=== PATIENT | female | born 1995 | race Caucasian/White ===

== ENCOUNTER 2023-03-07 20:02 | Outpatient (CLI) | payer BC ==
[2023-03-07 21:27] VITALS: BP 132/83; PULSE 94; RESP 16; TEMP 97.9
--- NOTE | 2023-03-08 11:11 | P.MSEPDOC ---
Presenting Problems - Arrival Data Date of Arrival on Unit: 03/07/23 Time of Arrival on Unit: 20:02 Mode of Transport: Ambulatory - Complaint OB-Reason for Admission/Chief Complaint: Rule Out SROM Comment: large gush of fluid at 1830, not still leaking Medical History - Information : 3 Para: 2 Term: 2 : 0 Abortions: Spontaneous or Elective: 0 Number of Living Children: 2 - Gestational Age Gestational Age by GAYLA (wks/days): 38 Weeks and 2 Days Review of Systems - Review of Systems Constitutional: No problems Breast: No problems ENT: No problems Cardiovascular: No problems Respiratory: No problems Gastrointestinal: No problems Genitourinary: No problems Musculoskeletal: No problems Neurological: No problems Skin: No problems Vital Signs - Temperature Temperature: 97.9 F Temperature Source: Temporal Artery Scan - Pulse Right Pulse Rate: 94 Pulse Assessment Method: Pulse Oximetry - Respirations Respiratory Rate: 16 Oxygen Delivery Method: Room Air O2 Sat by Pulse Oximetry: 98 - Blood Pressure Right Arm Blood Pressure: 132/83 Blood Pressure Mean: 99 Blood Pressure Source: Automatic Cuff Medical Screen Scoring - Cervical Exam Dilation (cm): 1 Effacement (%): 50 Station: -3 Membranes: Intact - Uterine Contractions Intensity: Mild Resting: Soft to palpation - Assessment - Baby A Baseline FHR: 130 Heart Rate - NICHD Category: Category I (Normal) NST: Reactive Physician Notification - Physician Notified Physician Notified Date: 03/07/23 Physician Notified Time: 20:57 Physician: Marvin Mercado Order Received: Yes - Notification Comment Comment: reported on: pts c/o, reactive fhts, irreg cntrx, vitals stable, negative amnisure x2. orders to d/c home with instructions Maternal Triage Index - Maternal Triage Index Presenting for scheduled procedure w/no complaint: No - Stat/Priority 1 Stat Priority 1: No - Urgent/Priority 2 Urgent Priority 2: No - Prompt/Priority 3 Prompt Priority 3: No - Non-Urgent/Priority 4 Non-Urgent Priority 4: Yes Criteria Met for Priority 4: 38/2, r/o srom Disposition - Disposition OB Disposition: Discharge to home Discharge Date: 03/07/23 Discharge Time: 21:05 I agree with the RN Medical Screening Exam: Yes Physician's MSE Comment: I have neither seen and examined the patient. Case reviewed; plan agreed upon as documented in EMR&OBIX.: Yes Diagnosis: RELATED CONDITIONS, UNSPECIFIED, THIRD TRIMESTER
== END 2023-03-07 21:05 | disposition home or self-care (01) ==
LOC: FBPOP 20:02
PROVIDERS: ATTEND Obstetrics & Gynecology
DX: O47.1 False labor at or after 37 completed weeks of gestation (principal); Z3A.38 38 weeks gestation of pregnancy; Z88.0 Allergy status to penicillin
CPT/HCPCS: 59025; 84112; 99213

== ENCOUNTER 2023-03-09 07:56 | Inpatient (IN) | payer BC ==
[2023-03-09] MEDS ORDERED: CARBOPROST TROMETHAMINE 250 MCG/ML 1 ML AMP IM PRN (08:39)
[2023-03-09] MEDS ORDERED: LIDOCAINE 0.5% (PF) 5 MG/ML (50 ML SDV) SQ PRN (08:39)
[2023-03-09] MEDS ORDERED: OXYTOCIN 10 UNIT/ML 1 ML VIAL IM PRN (08:39)
[2023-03-09] MEDS ORDERED: METHYLERGONOVINE 0.2 MG/ML 1 ML AMP IM PRN (08:39)
[2023-03-09] MEDS ORDERED: TRANEXAMIC ACID IN NACL,ISO-OS 1,000 MG in EMPTY BAG 1 BAG IV PRN (08:39)
[2023-03-09] MEDS ORDERED: TERBUTALINE 1 MG/ML VIAL SQ PRN (08:39)
[2023-03-09] MEDS ORDERED: miSOPROStoL 200 MCG TAB PO PRN (08:39)
[2023-03-09] MEDS ORDERED: OXYTOCIN 30 UNITS/500 ML NS 30 UNIT in SALINE 1 500ML.BAG IV SCH ×2 (08:45→16:00)
[2023-03-09] MEDS: LACTATED RINGERS 1,000 ML IV SCH ×3 (09:11→22:35)
[2023-03-09 09:23] LABS: Basophils % (A) 0 %; Eosinophils # (A) 0.1 k/uL (0-0.7); Eosinophils % (A) 1 %; HCT 36.6 % (34.0-46.0); HGB 12.8 gm/dL (11.4-16.0); Lymphocytes # (A) 1.6 k/uL (1.0-4.8); Lymphocytes % (A) 13 %; MCH 31.9 pg (25.0-35.0); MCHC 34.9 g/dL (31.0-37.0); MCV 91.5 fL (80.0-100.0); Mean Platelet Volume 11.4; Monocytes # (A) 0.6 k/uL (0-1.0); Monocytes % (A) 5 %; Neutrophils # (A) 10.1 k/uL (1.3-7.7); Neutrophils % (A) 81 %; RDW 12.7 % (11.5-15.5); WBC 12.6 k/uL (3.8-10.6)
[2023-03-09] MEDS ORDERED: fentaNYL (PF) 50 MCG/ML 5 ML AMP ONE (09:29)
[2023-03-09] MEDS ORDERED: ROPIVACAINE 5 MG/ML 20 ML AMPULE ONE (09:29)
[2023-03-09] MEDS ORDERED: SODIUM CHLORIDE 0.9% 100 ML BAG ONE (09:29)
[2023-03-09 09:45] LABS: Large Platelets Present; Platelet Count 189 k/uL (150-450)
--- NOTE | 2023-03-09 15:44 | P.HPOB ---
History of Present Illness H&P Date: 03/09/23 Chief Complaint: SROM, labor This is a 27 year old at 38 weeks and 4 days with EDC of 03/19/2023 by LMP c/w 9 week ultrasound presenting to triage with grossly ruptured membranes (amnisure positive) and regular uterine contractions. has been complicated by maternal history of migraines and alopecia. Obstetric history: 2 full term vaginal deliveries, uncomplicated Maternal serologies: blood type B negative (s/p rhogam at 28 weeks), antibody negative, rubella immune, VDRL non-reactive, HIV negative, HBsAg negative, 1 hour GTT 147, 3 hour GTT within normal limits, GBS negative Past Medical History Past Medical History: No Reported History History of Any Multi-Drug Resistant Organisms: None Reported Past Surgical History: Tonsillectomy Past Anesthesia/Blood Transfusion Reactions: No Reported Reaction Past Psychological History: No Psychological Hx Reported Smoking Status: Never smoker Past Drug Use History: None Reported - Past Family History Father Family Medical History: Hypertension Medications and Allergies Home Medications Medication Instructions Recorded Confirmed Type Vit No.179/Iron/Folic 1 each PO DAILY 03/07/23 03/09/23 History [ Tablet] Allergies Allergy/AdvReac Type Severity Reaction Status Date / Time Penicillins Allergy Intermediate Rash/Hives Verified 03/09/23 08:05 Exam Vital Signs Temp Pulse Resp BP 03/09/23 09:12 96.9 F L 120 H 16 144/88 03/09/23 08:53 96.9 F L 120 H 16 144/88 Intake and Output 03/09/23 03/09/23 03/09/23 06:59 14:59 22:59 Other: Weight 74.843 kg Focused physical exam is performed. This is a healthy appearing , breathing through contractions. On cervical exam, the patient is 4cm dilated, 80% effaced, and -2 station. heart tones are Category I. Results Result Diagrams: 03/09/23 08:35 Abnormal Lab Results - Last 24 Hours (Table) 03/09/23 Range/Units 08:35 WBC 12.6 H (3.8-10.6) k/uL Neutrophils # 10.1 H (1.3-7.7) k/uL Assessment and Plan Assessment: 27 year old at 38 weeks and 4 days with grossly ruptured membranes, presenting in labor Plan: Admit, NPO, mIVF, epidural prn, pitocin augmentation if contractions space out otherwise expectant management, continuous EFM, close monitoring of patient.
[2023-03-09] MEDS ORDERED: Rhogam IMMUNE GLOBULIN 1,500 UNIT/1 ML IM ONE (15:47)
[2023-03-09] MEDS ORDERED: ZOLPIDEM 5 MG TAB PO PRN (15:47)
[2023-03-09] MEDS ORDERED: diphenhydrAMINE 25 MG CAP PO PRN (15:47)
[2023-03-09] MEDS ORDERED: LANOLIN CREAM 5 GM TUBE TOPICAL PRN (15:47)
[2023-03-09] MEDS ORDERED: SIMETHICONE 80 MG CHEWABLE PO PRN (15:47)
[2023-03-09] MEDS ORDERED: HYDROCORTISONE 2.5% RECTAL CREAM 30 GM TUBE RECTAL PRN (15:47)
[2023-03-09] MEDS ORDERED: diphenhydrAMINE 50 MG CAP PO PRN (15:47)
[2023-03-09] MEDS ORDERED: diphenhydrAMINE 50 MG/ML 1 ML VIAL IVP PRN ×2 (15:47)
[2023-03-09] MEDS ORDERED: BENZOCAINE/MENTHOL SPRAY 1 GM/SPRAY AEROSOL TOPICAL PRN (15:47)
--- NOTE | 2023-03-09 15:47 | P.PROBDLV ---
Vaginal Delivery Note - . Vaginal Delivery Note: DATE OF SERVICE: 03/09/2023 PROCEDURE: Spontaneous Vaginal Delivery ATTENDING: Dr. Marva Sanchez MD ESTIMATED BLOOD LOSS: 300 mL FINDINGS: VMI, Apgars 9/9, Weight 3460 grams PROCEDURE: Patient was a 27 y/o at 38 weeks and 4 days who presented to labor and delivery with spontaneous rupture of membranes and in labor. The patient was admitted. Epidural anesthesia was obtained per her request. Pitocin augmentation was started. The fetus began to have recurrent deep variables at 8 cm with a thin, stretchy cervix noted. The decision was made to attempt to push past the stretchy cervix. The head easily pushed past the cervix with maternal pushing efforts. The head delivered without difficulty followed by shoulders and body over intact perineum. placed on maternal abdomen and bulb suctioned. Cord was clamped and cut after a 30 second delay. Placenta delivered whole with gentle cord traction. Oxytocin was started to facilitate uterine tone. Uterine fundus firm and bleeding minimal upon fundal massage. Perineal inspection revealed intact perineum. Internal exam confirmed no injury to the cervix. Patient stable .
[2023-03-09] MEDS: IBUPROFEN 600 MG TAB PO PRN ×2 (17:00→22:32)
[2023-03-09] MEDS: ACETAMINOPHEN TAB 325 MG TAB PO PRN (20:11)
[2023-03-09] MEDS: SENNOSIDES-DOCUSATE SODIUM 1 EACH TAB PO SCH (20:11)
[2023-03-10] MEDS: ACETAMINOPHEN TAB 325 MG TAB PO PRN ×2 (03:41→09:53)
[2023-03-10] MEDS: IBUPROFEN 600 MG TAB PO PRN ×2 (06:13→16:00)
[2023-03-10 06:47] LABS: Basophils % (A) 0 %; Eosinophils # (A) 0.1 k/uL (0-0.7); Eosinophils % (A) 1 %; HCT 33.2 % (34.0-46.0); HGB 11.1 gm/dL (11.4-16.0); Lymphocytes # (A) 2.1 k/uL (1.0-4.8); Lymphocytes % (A) 15 %; MCH 31.1 pg (25.0-35.0); MCHC 33.4 g/dL (31.0-37.0); MCV 93.1 fL (80.0-100.0); Mean Platelet Volume 11.6; Monocytes # (A) 0.7 k/uL (0-1.0); Monocytes % (A) 5 %; Neutrophils # (A) 11.2 k/uL (1.3-7.7); Neutrophils % (A) 78 %; Platelet Count 178 k/uL (150-450); RBC 3.56 m/uL (3.80-5.40); RDW 12.9 % (11.5-15.5); WBC 14.4 k/uL (3.8-10.6)
--- NOTE | 2023-03-10 07:21 | P.PNOBGVD ---
Subjective - Subjective Principal diagnosis: s/p spontaneous normal vaginal delivery Interval history: The patient is doing well this morning and had no acute events overnight. She has no complaints this morning. She reports minimal lochia, passing flatus, voiding without difficulty, ambulating, and eating/drinking without nausea or vomiting. She is her infant without difficulty. She denies chest pain, shortness of breathing, fevers, or chills overnight. She denies pain or swelling in the legs. Patient reports: Reports appetite normal, Reports voiding normally, Reports pain well controlled, Reports ambulating normally : doing well Objective - Latest Vital Signs Latest vital signs: Vital Signs Temp Pulse Pulse Resp BP Pulse Ox 03/10/23 04:00 97.8 F 76 16 110/76 96 03/10/23 00:00 98.6 F 64 18 111/71 94 L 03/09/23 20:00 98.6 F 76 18 108/71 94 L 03/09/23 17:16 98.3 F 78 16 97/56 03/09/23 17:01 103 H 16 106/59 03/09/23 16:46 95 16 113/77 03/09/23 16:31 84 16 114/75 03/09/23 16:16 80 16 114/73 03/09/23 16:01 88 16 111/70 03/09/23 15:46 98.2 F 94 16 117/65 03/09/23 09:12 96.9 F L 120 H 16 144/88 03/09/23 08:53 96.9 F L 120 H 16 144/88 Intake and Output 03/09/23 03/10/23 03/10/23 22:59 06:59 14:59 Intake Total 540 Output Total 450 Balance -450 540 Intake: Oral 540 Output: Urine 300 Output, Quantitative 150 Blood Loss Other: # Voids 1 1 - Exam Abdomen: Present: normal appearance, soft Uterus: Present: normal, firm - Labs Labs: Abnormal Lab Results - Last 24 Hours (Table) 03/09/23 03/10/23 Range/Units 08:35 06:26 WBC 12.6 H 14.4 H (3.8-10.6) k/uL RBC 3.56 L (3.80-5.40) m/uL Hgb 11.1 L (11.4-16.0) gm/dL Hct 33.2 L (34.0-46.0) % Neutrophils # 10.1 H 11.2 H (1.3-7.7) k/uL Assessment and Plan Assessment: 27 year old now PPD#1 s/p normal vaginal delivery Plan: Patient doing well, desires discharge home today.
[2023-03-10] MEDS: SENNOSIDES-DOCUSATE SODIUM 1 EACH TAB PO SCH (08:20)
--- NOTE | 2023-03-10 08:30 | P.DS ---
Providers Date of admission: 03/09/23 08:20 Expected date of discharge: 03/10/23 Attending physician: Frnacisca Mcmahan Primary care physician: Stated None Hospital Course: Ms. Pollock is a 27 year old now PPD#1 s/p normal spontaneous vaginal delivery. The patient is doing well this morning and had no acute events overnight. She has no complaints this morning. She reports minimal lochia, passing flatus, voiding without difficulty, ambulating, and eating/drinking without nausea or vomiting. Infant doing well at bedside, s/p circumcision, well. She denies chest pain, shortness of breathing, fevers, or chills overnight. She denies pain or swelling in the legs. restrictions are reviewed with the patient including pelvic rest for 6 weeks. The patient is encouraged to call the office if she experiences any heavy bleeding, foul-smelling discharge, breast complaints, or any if she has any other concerns. She will follow up in the office in 6 weeks with myself for exam. All questions are answered. Assessment: 27 year old now PPD#1 s/p Patient Condition at Discharge: Good Plan - Discharge Summary Discharge Rx Participant: No New Discharge Prescriptions: No Action Vit No.179/Iron/Folic [ Tablet] 1 each PO DAILY Discharge Medication List Vit No.179/Iron/Folic [ Tablet] 1 each PO DAILY 03/07/23 [History] Follow up Appointment(s)/Referral(s): Marva Sanchez MD [STAFF PHYSICIAN] - 6 Weeks Patient Instructions/Handouts: Depression (DC), Bleeding (DC) Activity/Diet/Wound Care/Special Instructions: Pelvic rest x 6 weeks Discharge Disposition: HOME SELF-CARE
[2023-03-10 15:59] VITALS: BP 108/74; PULSE 80; RESP 15; TEMP 98
== END 2023-03-10 16:15 | disposition home or self-care (01) | DRG 807 ==
LOC: FBPOP 07:56 → 4FBP 08:20
PROVIDERS: ADMIT Obstetrics & Gynecology; ATTEND Obstetrics & Gynecology
PROC: 10E0XZZ Delivery of Products of Conception, External Approach (ICD-10-PCS; principal; 2023-03-09)
PROC: 3E033VJ Introduction of Other Hormone into Peripheral Vein, Percutaneous Approach (ICD-10-PCS; 2023-03-09)
DX: O42.92 Full-term premature rupture of membranes, unspecified as to length of time between rupture and onset of labor (principal); Z37.0 Single live birth; O62.3 Precipitate labor; O26.893 Other specified pregnancy related conditions, third trimester; Z3A.38 38 weeks gestation of pregnancy; Z67.21 Type B blood, Rh negative; Z88.0 Allergy status to penicillin
CPT/HCPCS: 59025; 84112; 85025; 86850; 86870; 86880; 86900; 86901; 99213

== ENCOUNTER 2023-07-30 14:49 | Emergency (ER) | payer BC ==
--- NOTE | 2023-07-30 15:10 | ED ---
Dizziness HPI - General Source: RN notes reviewed <Renate Dc - Last Filed: 07/30/23 15:09> - General Source: patient, RN notes reviewed Mode of arrival: ambulatory Limitations: no limitations - History of Present Illness MD Complaint: dizziness <Nafisa Braun - Last Filed: 07/30/23 23:51> - General Chief Complaint: Dizziness Stated Complaint: dizziness/facial numbness Time Seen by Provider: 07/30/23 15:09 - History of Present Illness Initial Comments: Patient is a 28-year-old female who presents the emergency department for dizziness and numbness in face and fingertips (Renate Dc) This is a 28-year-old female who presents to the emergency department for dizziness. States that over the last month, she has had dizziness episodes. States that this sometimes starts out like tunnel vision and other times her vision goes black. She has also noticed floaters in her vision. She has noticed that this will occasionally be triggered by positions and she does have some ro om spinning sensations. However, this also occurs while at rest without any triggers all. She is being treated for mastitis and had a follow-up appointment with her [facility] today, who advised she come to the emergency department for evaluation. Notes that she has 3 children at home and becomes terrified if she is trying to drive when an episode occurs. She does have a history of migraines, where the left side of her face turns numb followed by a headache, and she has had episodes of the left-sided facial numbness, however she has not developed any headaches. She is waiting to hear back from a local neurologist office regarding an appointment to become established for ongoing care. Not currently taking any medication for the migraines. (Nafisa Braun) - Related Data Home Medications Medication Instructions Recorded Confirmed Vit No.179/Iron/Folic 1 each PO DAILY 03/07/23 03/09/23 [ Tablet] Previous Rx's Medication Instructions Recorded Meclizine [Antivert] 25 mg PO QID PRN #20 tab 07/30/23 Allergies Allergy/AdvReac Type Severity Reaction Status Date / Time Penicillins Allergy Intermediate Rash/Hives Verified 03/09/23 08:05 Review of Systems ROS Other: All systems not noted in ROS Statement are negative. <Renate Dc - Last Filed: 07/30/23 15:09> ROS Other: All systems not noted in ROS Statement are negative. <Nafisa Braun - Last Filed: 07/30/23 23:51> ROS Statement: Those systems with pertinent positive or pertinent negative responses have been documented in the HPI. Past Medical History Past Medical History: No Reported History History of Any Multi-Drug Resistant Organisms: None Reported Past Surgical History: Tonsillectomy Past Anesthesia/Blood Transfusion Reactions: No Reported Reaction Past Psychological History: No Psychological Hx Reported Smoking Status: Never smoker Past Drug Use History: None Reported - Past Family History Father Family Medical History: Hypertension <Renate Dc - Last Filed: 07/30/23 15:09> General Exam <Renate Dc - Last Filed: 07/30/23 15:09> Limitations: no limitations General appearance: alert, in no apparent distress Head exam: Present: atraumatic, normocephalic, normal inspection Eye exam: Present: normal appearance, PERRL, EOMI. Absent: scleral icterus, conjunctival injection, periorbital swelling ENT exam: Present: TM's normal bilaterally, normal external ear exam Neck exam: Present: normal inspection. Absent: tenderness, meningismus, lymphadenopathy Respiratory exam: Present: normal lung sounds bilaterally. Absent: respiratory distress, wheezes, rales, rhonchi, stridor Cardiovascular Exam: Present: regular rate, normal rhythm, normal heart sounds. Absent: systolic murmur, diastolic murmur, rubs, gallop, clicks Neurological exam: Present: alert, oriented X3, CN II-XII intact Psychiatric exam: Present: normal affect, normal mood Skin exam: Present: warm, dry, intact, normal color. Absent: rash <Nafisa Braun - Last Filed: 07/30/23 23:51> - General Exam Comments Initial Comments: Visual Physical Exam Vital signs reviewed General: Well-appearing, nontoxic, no acute distress. Head: Normocephalic, atraumatic Eyes: PERRLA, EOMI ENT: Airway patent Chest: Nonlabored breathing Skin: No visual rash, normal skin tone Neuro: Alert and oriented 3 Musculoskeletal: No gross abnormalities (Renate Dc) Course Vital Signs 07/30/23 15:08 Temperature 97.8 F Pulse Rate 66 Respiratory 16 Rate Blood Pressure 124/79 O2 Sat by Pulse 98 Oximetry Medical Decision Making <Renate Dc - Last Filed: 07/30/23 15:09> - Lab Data Result diagrams: 07/30/23 16:07 07/30/23 16:07 - Radiology Data Radiology results: report reviewed, image reviewed <MagnoguillermoThomas amosNafisa - Last Filed: 07/30/23 23:51> - Medical Decision Making I performed the QuickNote portion of this chart - Renate Dc PA-C (Renate Dc) This is a 28 year old female who presents to the emergency department for dizzin ess. Was pt. sent in by a medical professional or institution? @ -No Did you speak to anyone other than the patient for history? @ -No Did you review nursing and triage notes? @ -Yes, and I agree, it is accurate with regards to the patient's symptoms. Were old charts reviewed? @ -No Differential Diagnosis? @ -Differential Dizziness: Benign paroxysmal positional Vertigo, Menieres disease, otitis media, acoustic neuroma, vertebrobasilar insufficiency, cerebellar stroke, encephalitis, hypovolemic, arrhythmia, coronary artery syndrome, anemia, this is not meant to be an all-inclusive list EKG interpreted by me (3pts min.)? @ -EKG interpreted by me demonstrating the following: Sinus rhythm. Ventricular rate 69 beats per minute, TX interval 143 ms, QRS duration 95 ms, QTC 412 ms. X-rays interpreted by me (1pt min.)? @ -Not obtained CT interpreted by me (1pt min.)? @ -CT scan of the brain obtained. My interpretation identifies no evidence of a tumor or ischemic changes. U/S interpreted by me (1pt. min.)? @ -Not obtained What testing was considered but not performed? (CT, X-rays, U/S, labs)? Why? @ -None What meds were considered but not given? Why? @ -None Did you discuss the management of the patient with other professionals? @ -No Did you reconcile home meds? @ -No Was smoking cessation discussed for >3mins.? @ -No Was critical care preformed (if so, how long)? @ -No Were there social determinants of health that impacted care today? How? (Homelessness, low income, unemployed, alcoholism, drug addiction, transportation, low edu. Level, literacy, decrease access to med. care, group home, rehab)? @ -No Was there de-escalation of care discussed even if they declined? (Discuss DNR or withdrawal of care, Hospice)? @ -No What co-morbidities impacted this encounter? (DM, HTN, Smoking, COPD, CAD, Cancer, CVA, Hep., AIDS, mental health diagnosis, sleep apnea, morbid obesity)? @ -Migraines Was patient admitted / discharged? @ -Discharged. Lab work obtained and found to be nonactionable. Computed tomography scan of the brain obtained revealing no acute process. Patient did not experience any symptoms in the emergency department, and we did not give her any medication. Discussed that this could be related to vertigo, migraines, or something else that we are unable to identify at this time. I did give her information for follow-up with local neurology given her difficulty with becoming established with a local provider. She was also given a prescription for meclizine, which I advised she try taking when symptoms recur to see if this is effective. Also recommended she keep a journal of her symptoms, describing what she was doing when they occurred and how she felt to see if she can establish a pattern. Patient otherwise discharged home in stable condition. Undiagnosed new problem with uncertain prognosis? @ -None Drug Therapy requiring intensive monitoring for toxicity (Heparin, Nitro, Insulin, Cardizem)? @ -None Were any procedures done? @ -None Diagnosis/symptom? @ -Dizziness Acute, or Chronic, or Acute on Chronic? @ -Acute Uncomplicated (without systemic symptoms) or Complicated (systemic symptoms)? @ -Uncomplicated Side effects of treatment? @ -None Exacerbation, Progression, or Severe Exacerbation] @ -Not applicable Poses a threat to life or bodily function? @ -Unclear Return precautions reviewed in depth, the patient is instructed to return to the emergency department with any new, worsening, or concerning symptoms. Patient verbalized understanding. This case was discussed in detail with the attending ED physician, Dr. Peña. Presentation, findings, and treatment plan discussed in detail as well. (Nafisa Braun) - Lab Data Lab Results 07/30/23 07/30/23 07/30/23 Range/Units 16:07 16:07 16:07 WBC 6.5 (3.8-10.6) k/uL RBC 4.40 (3.80-5.40) m/uL Hgb 13.7 (11.4-16.0) gm/dL Hct 40.7 (34.0-46.0) % MCV 92.5 (80.0-100.0) fL MCH 31.1 (25.0-35.0) pg MCHC 33.6 (31.0-37.0) g/dL RDW 12.2 (11.5-15.5) % Plt Count 266 (150-450) k/uL MPV 9.2 Neutrophils % 52 % Lymphocytes % 34 % Monocytes % 6 % Eosinophils % 5 % Basophils % 1 % Neutrophils # 3.4 (1.3-7.7) k/uL Lymphocytes # 2.2 (1.0-4.8) k/uL Monocytes # 0.4 (0-1.0) k/uL Eosinophils # 0.3 (0-0.7) k/uL Basophils # 0.0 (0-0.2) k/uL Sodium (137-145) mmol/L Potassium (3.5-5.1) mmol/L Chloride (98-107) mmol/L Carbon Dioxide (22-30) mmol/L Anion Gap mmol/L BUN (7-17) mg/dL Creatinine (0.52-1.04) mg/dL Est GFR (CKD-EPI)AfAm (>60 ml/min/1.73 sqM) Est GFR (CKD-EPI)NonAf (>60 ml/min/1.73 sqM) Glucose (74-99) mg/dL Calcium (8.4-10.2) mg/dL Magnesium (1.6-2.3) mg/dL Total Bilirubin (0.2-1.3) mg/dL AST (14-36) U/L ALT (4-34) U/L Alkaline Phosphatase (38-126) U/L Total Protein (6.3-8.2) g/dL Albumin (3.5-5.0) g/dL Urine Color Light Yellow Urine Appearance Cloudy H (Clear) Urine pH 5.5 (5.0-8.0) Ur Specific Ever[place] 1.024 (1.001-1.035) Urine Protein Negative (Negative) Urine Glucose (UA) Negative (Negative) Urine Ketones Negative (Negative) Urine Blood Negative (Negative) Urine Nitrite Negative (Negative) Urine Bilirubin Negative (Negative) Urine Urobilinogen <2.0 (<2.0) mg/dL Ur Leukocyte Esterase Large H (Negative) Urine RBC 3 (0-5) /hpf Urine WBC 30 H (0-5) /hpf Ur Squamous Epith Cells 25 H (0-4) /hpf Urine Bacteria Rare H (None) /hpf Urine Mucus Few H (None) /hpf Urine HCG, Qual Not Detected (Not Detectd) 07/30/23 Range/Units 16:07 WBC (3.8-10.6) k/uL RBC (3.80-5.40) m/uL Hgb (11.4-16.0) gm/dL Hct (34.0-46.0) % MCV (80.0-100.0) fL MCH (25.0-35.0) pg MCHC (31.0-37.0) g/dL RDW (11.5-15.5) % Plt Count (150-450) k/uL MPV Neutrophils % % Lymphocytes % % Monocytes % % Eosinophils % % Basophils % % Neutrophils # (1.3-7.7) k/uL Lymphocytes # (1.0-4.8) k/uL Monocytes # (0-1.0) k/uL Eosinophils # (0-0.7) k/uL Basophils # (0-0.2) k/uL Sodium 139 (137-145) mmol/L Potassium 3.9 (3.5-5.1) mmol/L Chloride 101 (98-107) mmol/L Carbon Dioxide 29 (22-30) mmol/L Anion Gap 9 mmol/L BUN 12 (7-17) mg/dL Creatinine 0.68 (0.52-1.04) mg/dL Est GFR (CKD-EPI)AfAm >90 (>60 ml/min/1.73 sqM) Est GFR (CKD-EPI)NonAf >90 (>60 ml/min/1.73 sqM) Glucose 106 H (74-99) mg/dL Calcium 9.3 (8.4-10.2) mg/dL Magnesium 1.8 (1.6-2.3) mg/dL Total Bilirubin 0.4 (0.2-1.3) mg/dL AST 17 (14-36) U/L ALT 16 (4-34) U/L Alkaline Phosphatase 69 (38-126) U/L Total Protein 7.3 (6.3-8.2) g/dL Albumin 4.4 (3.5-5.0) g/dL Urine Color Urine Appearance (Clear) Urine pH (5.0-8.0) Ur Specific [place] (1.001-1.035) Urine Protein (Negative) Urine Glucose (UA) (Negative) Urine Ketones (Negative) Urine Blood (Negative) Urine Nitrite (Negative) Urine Bilirubin (Negative) Urine Urobilinogen (<2.0) mg/dL Ur Leukocyte Esterase (Negative) Urine RBC (0-5) /hpf Urine WBC (0-5) /hpf Ur Squamous Epith Cells (0-4) /hpf Urine Bacteria (None) /hpf Urine Mucus (None) /hpf Urine HCG, Qual (Not Detectd) Disposition <Renate Dc - Last Filed: 07/30/23 15:09> Is patient prescribed a controlled substance at d/c from ED?: No <Nafisa Braun - Last Filed: 07/30/23 23:51> Clinical Impression: Dizziness Disposition: HOME SELF-CARE Instructions (If sedation given, give patient instructions): Dizziness (ED) Additional Instructions: Return to the emergency department with any new, worsening, or concerning symptoms. You can try taking the meclizine when symptoms occur to see if this offers any improvement. This can be taken up to 4 times daily. You can also consider keeping a journal or log of these events, writing down what you were doing and how you were feeling when they occur to see if you can establish a pattern. I listed two neurology providers down below, you can contact the offices to see if they can get you in sooner for a follow-up appointment. Follow up with your primary care provider in 1-2 days. Prescriptions: Meclizine [Antivert] 25 mg PO QID PRN #20 tab PRN Reason: Vertigo Referrals: Charmaine Peña DO [Primary Care Provider] - 1-2 days Gustavo Yoder DO [STAFF PHYSICIAN] - 1-2 days Ramon Starr MD [Medical Doctor] - 1-2 days
[2023-07-30 15:19] VITALS: BP 124/79; PULSE 66; RESP 16; TEMP 97.8
[2023-07-30 16:30] LABS: Basophils % (A) 1 %; Eosinophils # (A) 0.3 k/uL (0-0.7); Eosinophils % (A) 5 %; HCT 40.7 % (34.0-46.0); HGB 13.7 gm/dL (11.4-16.0); Lymphocytes # (A) 2.2 k/uL (1.0-4.8); Lymphocytes % (A) 34 %; MCH 31.1 pg (25.0-35.0); MCHC 33.6 g/dL (31.0-37.0); MCV 92.5 fL (80.0-100.0); Mean Platelet Volume 9.2; Monocytes # (A) 0.4 k/uL (0-1.0); Monocytes % (A) 6 %; Neutrophils # (A) 3.4 k/uL (1.3-7.7); Neutrophils % (A) 52 %; Platelet Count 266 k/uL (150-450); RDW 12.2 % (11.5-15.5); WBC 6.5 k/uL (3.8-10.6)
[2023-07-30 16:46] LABS: ALT 16 U/L (4-34); AST 17 U/L (14-36); African American GFR (CKD) >90 (>60 ml/min/1.73 sqM); Albumin 4.4 g/dL (3.5-5.0); Alkaline Phosphatase 69 U/L (38-126); Anion Gap 9 mmol/L; Blood Urea Nitrogen 12 mg/dL (7-17); Calcium 9.3 mg/dL (8.4-10.2); Carbon Dioxide 29 mmol/L (22-30); Chloride 101 mmol/L (98-107); Glucose 106 mg/dL (74-99); Magnesium 1.8 mg/dL (1.6-2.3); Non-African American GFR(CKD) >90 (>60 ml/min/1.73 sqM); Potassium 3.9 mmol/L (3.5-5.1); Sodium 139 mmol/L (137-145); Total Bilirubin 0.4 mg/dL (0.2-1.3); Total Protein 7.3 g/dL (6.3-8.2)
[2023-07-30 17:52] LABS: Appearance,Urine Cloudy (Clear); Bacteria,Urine Rare /hpf; Bilirubin,Urine Negative (Negative); Blood,Urine Negative (Negative); Color,Urine Light Yellow; Glucose,Urine (UA) Negative (Negative); Ketones,Urine Negative (Negative); Leukocyte Esterase,Urine Large (Negative); Mucus,Urine Few /hpf; Nitrite,Urine Negative (Negative); PH, Urine 5.5 (5.0-8.0); Protein,Urine Negative (Negative); RBC,Urine 3 /hpf (0-5); Specific Gravity,Urine 1.024 (1.001-1.035); Squamous Epithelial Cell,Urine 25 /hpf (0-4); Urobilinogen,Urine <2.0 mg/dL (<2.0); WBC,Urine 30 /hpf (0-5)
--- NOTE | 2023-07-30 19:47 | CT ---
EXAMINATION TYPE: CT brain wo con CT DLP: 1096.4 mGycm, Automated exposure control for dose reduction was used. DATE OF EXAM: 07/30/2023 7:42 PM COMPARISON: None. CLINICAL INDICATION:Female, 28 years old with history of Dizziness, facial numbness, tunnel vision an d and seeing black spects TECHNIQUE: Brain: Axial CT images of the brain were obtained with coronal and sagittal reformats created and rev iewed. Contrast used: None. Oral contrast used: None. FINDINGS: Brain: Extra-axial spaces: No abnormal extra-axial fluid collections. Ventricular system: Within normal limits Cerebral parenchyma: No acute intraparenchymal hemorrhage or mass effect. The brewer-white junction is well differentiated. Cerebellum: Unremarkable. Mass effect: No evidence of midline shift. Intracranial vasculature: unremarkable Soft tissues: Normal. Calvarium/osseous structures: No depressed skull fracture. Paranasal sinuses and mastoid air cells: Mild scattered paranasal sinus disease. Visualized orbits: Orbital contents are intact. IMPRESSION: No acute intracranial process.
[2023-07-30] MEDS ORDERED: MECLIZINE 12.5 MG TAB PO STA (20:10)
== END 2023-07-30 20:34 | disposition home or self-care (01) ==
LOC: EC 14:49
DX: R42 Dizziness and giddiness (principal); Z88.0 Allergy status to penicillin
CPT/HCPCS: 36415; 70450; 80053; 81001; 81025; 83735; 85025; 93005; 99284

== ENCOUNTER 2024-10-22 11:40 | Emergency (ER) | payer BC ==
--- NOTE | 2024-10-22 12:25 | ED ---
General Adult HPI - General Chief complaint: Neuro Symptoms/Deficit Stated complaint: L arm and face numbness Time Seen by Provider: 10/22/24 11:59 Source: patient, RN notes reviewed Mode of arrival: ambulatory Limitations: no limitations - History of Present Illness Initial comments: Patient is a 29-year-old female present to the emergency department with multiple complaints. Symptoms have been occurring for the past 4 months. Patient has had generalized weakness since this time. Patient has had some left facial and left arm numbness. Today with a warm bath patient did have some shaking and increased muscle discomfort. Patient has mild headache on the right side. 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 Patient has an appointment with neurologist in 2 days. - Related Data Home Medications Medication Instructions Recorded Confirmed Vit No.179/Iron/Folic 1 each PO DAILY 03/07/23 03/09/23 [ Tablet] Previous Rx's Medication Instructions Recorded Meclizine [Antivert] 25 mg PO QID PRN #20 tab 07/30/23 Cyclobenzaprine [Flexeril] 10 mg PO TID PRN #12 tablet 10/22/24 Allergies Allergy/AdvReac Type Severity Reaction Status Date / Time Penicillins Allergy Intermediate Rash/Hives Verified 10/22/24 11:47 Review of Systems ROS Statement: Those systems with pertinent positive or pertinent negative responses have been documented in the HPI. ROS Other: All systems not noted in ROS Statement are negative. Constitutional: Denies: fever Eyes: Reports: as per HPI (Blurry vision). Denies: eye pain ENT: Denies: ear pain Respiratory: Denies: cough Cardiovascular: Denies: chest pain Endocrine: Reports: fatigue Gastrointestinal: Denies: abdominal pain Skin: Denies: rash Neurological: Reports: as per HPI. Denies: confusion Past Medical History Past Medical History: No Reported History Additional Past Medical History / Comment(s): +MARIELENA test History of Any Multi-Drug Resistant Organisms: None Reported Past Surgical History: Tonsillectomy Past Anesthesia/Blood Transfusion Reactions: No Reported Reaction Past Psychological History: No Psychological Hx Reported Smoking Status: Never smoker Past Drug Use History: None Reported - Past Family History Father Family Medical History: Hypertension General Exam Limitations: no limitations General appearance: alert, in no apparent distress Head exam: Present: atraumatic Eye exam: Present: normal appearance, PERRL, EOMI ENT exam: Present: normal oropharynx Neck exam: Present: normal inspection. Absent: tenderness, meningismus Respiratory exam: Present: normal lung sounds bilaterally Cardiovascular Exam: Present: regular rate, normal rhythm GI/Abdominal exam: Present: soft. Absent: tenderness Extremities exam: Present: normal inspection Neurological exam: Present: alert, oriented X3, CN II-XII intact. Absent: motor sensory deficit Expanded Neurological exam: Present: protecting the airway Speech: Present: fluid speech Cranial nerves: EOM's Intact: Normal, Facial Sensation: Normal Sensory exam: Upper Extremity Light Touch: Normal, Lower Extremity Light Touch: Normal Motor strength exam: RUE: 5, LUE: 5, RLE: 5, LLE: 5 Eye Response: (4) open spontaneously Motor Response: (6) obeys commands Verbal Response: (5) oriented Psychiatric exam: Present: normal affect, normal mood Skin exam: Present: normal color Course Vital Signs 10/22/24 11:47 Temperature 98.8 F Pulse Rate 88 Respiratory 18 Rate Blood Pressure 132/84 O2 Sat by Pulse 100 Oximetry EKG Findings - EKG Results: EKG: interpreted by ERMD, sinus rhythm, normal axis, normal QRS, normal ST/T Medical Decision Making - Medical Decision Making Was pt. sent in by a medical professional or institution ([facility], [employer], urgent care, hospital, or fpc...) When possible be specific @ -No Did you speak to anyone other than the patient for history (EMS, parent, family, police, friend...)? What history was obtained from this source @ -Mother arrives later and states that patient's symptoms have been occurring actually for years Did you review nursing and triage notes (agree or disagree)? Why? @ -I reviewed and agree with nursing and triage notes Were old charts reviewed (outside hosp., previous admission, EMS record, old EKG, old radiological studies, urgent care reports/EKG's, fpc records)? Report findings @ -Previous brain CT reviewed Differential Diagnosis (chest pain, altered mental status, abdominal pain women, abdominal pain men, vaginal bleeding, weakness, fever, dyspnea, syncope, headache, dizziness, GI bleed, back pain, seizure, CVA, palpatations, mental health, musculoskeletal)? @ -Differential Weakness: Hypoglycemia, shock, sepsis, hyponatremia, anemia, infection, NJ, ETOH, adverse medicine reaction, overdose, stroke, this is not meant to be an all-inclusive list. EKG interpreted by me (3pts min.). @ -As above X-rays interpreted by me (1pt min.). @ -Chest x-ray shows no acute process CT interpreted by me (1pt min.). @ -CT scan of the brain reveals no acute abnormality U/S interpreted by me (1pt. min.). @ -None done What testing was considered but not performed or refused? (CT, X-rays, U/S, labs)? Why? @ -None What meds were considered but not given or refused? Why? @ -None Did you discuss the management of the patient with other professionals (professionals i.e. , PA, E[employer]ILDH[employer]OCIATE TEACHER, lab, RT, psych nurse, social services technician, immigration lawyer, teacher, preventive medicine officer, manager rn case)? Give summary @ -No Was smoking cessation discussed for >3mins.? @ -No Was critical care preformed (if so, how long)? @ -No Were there social determinants of health that impacted care today? How? (Homeles sness, low income, unemployed, alcoholism, drug addiction, transportation, low edu. Level, literacy, decrease access to med. care, retirement, rehab)? @ -No Was there de-escalation of care discussed even if they declined (Discuss DNR or withdrawal of care, Hospice)? DNR status @ -No What co-morbidities impacted this encounter? (DM, HTN, Smoking, COPD, CAD, Cancer, CVA, ARF, Chemo, Hep., AIDS, mental health diagnosis, sleep apnea, morbid obesity)? @ -None Was patient admitted / discharged? Hospital course, mention meds given and route, prescriptions, significant lab abnormalities, going to OR and other pertinent info. @ -Patient presents with several symptoms including blurry vision, paresthesi as, subjective weakness, achiness. There is some clinical concern for MS diagnosis however this is not able to be clearly made in the emergency department. Patient does not have acute change in symptoms requiring admission. Patient does have an appointment with her neurologist in 2 days. Patient will be discharged with close follow-up. Patient and family do demonstrate understanding. Patient did have some improvement with muscle relaxers and will be provided prescription. Undiagnosed new problem with uncertain prognosis? @ -No Drug Therapy requiring intensive monitoring for toxicity (Heparin, Nitro, Insulin, Cardizem)? @ -No Were any procedures done? @ -No Diagnosis/symptom? @ -Weakness Acute, or Chronic, or Acute on Chronic? @ -Acute on chronic Uncomplicated (without systemic symptoms) or Complicated (systemic symptoms)? @ -Default Side effects of treatment? @ -No Exacerbation, Progression, or Severe Exacerbation? @ -No Poses a threat to life or bodily function? How? (Chest pain, [place], NJ, pneumonia, PE, COPD, DKA, ARF, appy, cholecystitis, CVA, Diverticulitis, Homicidal, Suicidal, threat to staff... and all critical care pts) @ -No - Lab Data Result diagrams: 10/22/24 12:46 10/22/24 12:46 Lab Results 10/22/24 10/22/24 10/22/24 Range/Units 12:46 12:46 12:46 WBC 7.8 (3.8-10.6) k/uL RBC 4.41 (3.80-5.40) m/uL Hgb 13.9 (11.4-16.0) gm/dL Hct 41.7 (34.0-46.0) % MCV 94.6 (80.0-100.0) fL MCH 31.4 (25.0-35.0) pg MCHC 33.2 (31.0-37.0) g/dL RDW 12.5 (11.5-15.5) % Plt Count 290 (150-450) k/uL MPV 8.4 Neutrophils % 65 % Lymphocytes % 25 % Monocytes % 6 % Eosinophils % 3 % Basophils % 1 % Neutrophils # 5.1 (1.3-7.7) k/uL Lymphocytes # 1.9 (1.0-4.8) k/uL Monocytes # 0.4 (0-1.0) k/uL Eosinophils # 0.2 (0-0.7) k/uL Basophils # 0.0 (0-0.2) k/uL PT 11.1 (10.0-12.5) sec INR 1.0 (<1.2) APTT 23.1 (22.0-30.0) sec Sodium 138 (137-145) mmol/L Potassium 4.3 (3.5-5.1) mmol/L Chloride 101 (98-107) mmol/L Carbon Dioxide 28 (22-30) mmol/L Anion Gap 9 mmol/L BUN 13 (7-17) mg/dL Creatinine 0.66 (0.52-1.04) mg/dL Est GFR (CKD-EPI)AfAm >90 (>60 ml/min/1.73 sqM) Est GFR (CKD-EPI)NonAf >90 (>60 ml/min/1.73 sqM) Glucose 97 (74-99) mg/dL Plasma Lactic Acid Liam (0.7-2.0) mmol/L Calcium 9.8 (8.4-10.2) mg/dL Magnesium 1.7 (1.6-2.3) mg/dL Total Bilirubin 0.6 (0.2-1.3) mg/dL AST 22 (14-36) U/L ALT 21 (4-34) U/L Alkaline Phosphatase 67 (38-126) U/L Creatine Kinase 29 L (30-135) U/L Total Protein 7.2 (6.3-8.2) g/dL Albumin 4.7 (3.5-5.0) g/dL TSH 1.820 (0.465-4.680) mIU/L Free T4 0.80 (0.78-2.19) ng/dL Urine RBC (0-5) /hpf Urine WBC (0-5) /hpf Ur Squamous Epith Cells (0-4) /hpf Urine Mucus (None) /hpf 10/22/24 10/22/24 Range/Units 13:16 13:16 WBC (3.8-10.6) k/uL RBC (3.80-5.40) m/uL Hgb (11.4-16.0) gm/dL Hct (34.0-46.0) % MCV (80.0-100.0) fL MCH (25.0-35.0) pg MCHC (31.0-37.0) g/dL RDW (11.5-15.5) % Plt Count (150-450) k/uL MPV Neutrophils % % Lymphocytes % % Monocytes % % Eosinophils % % Basophils % % Neutrophils # (1.3-7.7) k/uL Lymphocytes # (1.0-4.8) k/uL Monocytes # (0-1.0) k/uL Eosinophils # (0-0.7) k/uL Basophils # (0-0.2) k/uL PT (10.0-12.5) sec INR (<1.2) APTT (22.0-30.0) sec Sodium (137-145) mmol/L Potassium (3.5-5.1) mmol/L Chloride (98-107) mmol/L Carbon Dioxide (22-30) mmol/L Anion Gap mmol/L BUN (7-17) mg/dL Creatinine (0.52-1.04) mg/dL Est GFR (CKD-EPI)AfAm (>60 ml/min/1.73 sqM) Est GFR (CKD-EPI)NonAf (>60 ml/min/1.73 sqM) Glucose (74-99) mg/dL Plasma Lactic Acid Liam 0.7 (0.7-2.0) mmol/L Calcium (8.4-10.2) mg/dL Magnesium (1.6-2.3) mg/dL Total Bilirubin (0.2-1.3) mg/dL AST (14-36) U/L ALT (4-34) U/L Alkaline Phosphatase (38-126) U/L Creatine Kinase (30-135) U/L Total Protein (6.3-8.2) g/dL Albumin (3.5-5.0) g/dL TSH (0.465-4.680) mIU/L Free T4 (0.78-2.19) ng/dL Urine RBC 1 (0-5) /hpf Urine WBC <1 (0-5) /hpf Ur Squamous Epith Cells 13 H (0-4) /hpf Urine Mucus Rare H (None) /hpf Disposition Clinical Impression: Weakness Disposition: HOME SELF-CARE Condition: Stable Instructions (If sedation given, give patient instructions): Weakness (ED), Autoimmune Disease (ED) Additional Instructions: Please do follow-up with your primary care physician this week. Please follow- up with your neurologist Wednesday as scheduled. Have your doctors review lab work from today. Return for increased weakness, fever, pain, speech problems, worsening symptoms or any other concerns. Prescription sent to pharmacy Prescriptions: Cyclobenzaprine [Flexeril] 10 mg PO TID PRN #12 tablet PRN Reason: Pain Is patient prescribed a controlled substance at d/c from ED?: No Referrals: Ney Zavaleta DO [Primary Care Provider] - 1-2 days Time of Disposition: 14:07
[2024-10-22 12:51] LABS: Basophils % (A) 1 %; Eosinophils # (A) 0.2 k/uL (0-0.7); Eosinophils % (A) 3 %; HCT 41.7 % (34.0-46.0); HGB 13.9 gm/dL (11.4-16.0); Lymphocytes # (A) 1.9 k/uL (1.0-4.8); Lymphocytes % (A) 25 %; MCH 31.4 pg (25.0-35.0); MCHC 33.2 g/dL (31.0-37.0); MCV 94.6 fL (80.0-100.0); Mean Platelet Volume 8.4; Monocytes # (A) 0.4 k/uL (0-1.0); Monocytes % (A) 6 %; Neutrophils # (A) 5.1 k/uL (1.3-7.7); Neutrophils % (A) 65 %; Platelet Count 290 k/uL (150-450); RBC 4.41 m/uL (3.80-5.40); RDW 12.5 % (11.5-15.5); WBC 7.8 k/uL (3.8-10.6)
[2024-10-22] MEDS: ORPHENADRINE 30 MG/ML 2 ML VIAL IVP STA (12:56)
[2024-10-22 13:03] LABS: Partial Thromboplastin Time 23.1 sec (22.0-30.0); Prothrombin Time 11.1 sec (10.0-12.5)
[2024-10-22 13:06] LABS: ALT 21 U/L (4-34); AST 22 U/L (14-36); African American GFR (CKD) >90 (>60 ml/min/1.73 sqM); Albumin 4.7 g/dL (3.5-5.0); Alkaline Phosphatase 67 U/L (38-126); Anion Gap 9 mmol/L; Blood Urea Nitrogen 13 mg/dL (7-17); Calcium 9.8 mg/dL (8.4-10.2); Carbon Dioxide 28 mmol/L (22-30); Chloride 101 mmol/L (98-107); Creatine Kinase 29 U/L (30-135); Glucose 97 mg/dL (74-99); Magnesium 1.7 mg/dL (1.6-2.3); Non-African American GFR(CKD) >90 (>60 ml/min/1.73 sqM); Potassium 4.3 mmol/L (3.5-5.1); Sodium 138 mmol/L (137-145); Total Bilirubin 0.6 mg/dL (0.2-1.3); Total Protein 7.2 g/dL (6.3-8.2)
--- NOTE | 2024-10-22 13:25 | CT ---
EXAMINATION TYPE: CT brain wo con DATE OF EXAM: 10/22/2024 1:18 PM COMPARISON: 07/30/2023 CLINICAL INDICATION: Female, 29 years old with history of weakness, Lt sided weakness TECHNIQUE: CT of the brain is performed utilizing 3 mm thick sections through the posterior fossa and 3 mm thick sections through the remaining calvarium. Study is performed within 24 hours of arrival to the hospital. Contrast used: mL of , (none if empty) CT DLP: 1064.4 mGycm, Automated exposure control for dose reduction was used. FINDINGS: No abnormal hyperdensity is present to suggest an acute intracranial hemorrhage. No mass lesion is evident. No acute infarcts are evident. Ventricles and sulci are appropriate for the patient age. Paranasal sinuses and mastoid air cells within the [id number] are clear. No significant interval change evident. IMPRESSION: 1. No acute intracranial process. Follow up MRI can be performed as clinically indicated. [facility], , 10/22/2024 1:22 PM
[2024-10-22 13:36] LABS: Mucus,Urine Rare /hpf; RBC,Urine 1 /hpf (0-5); Squamous Epithelial Cell,Urine 13 /hpf (0-4); WBC,Urine <1 /hpf (0-5)
--- NOTE | 2024-10-22 13:43 | XR ---
EXAMINATION TYPE: XR chest 2V DATE OF EXAM: 10/22/2024 1:24 PM COMPARISON: None. CLINICAL INDICATION: Female, 29 years old with history of Weakness, TECHNIQUE: XR chest 2V view(s) obtained. FINDINGS: The heart size is normal. The pulmonary vasculature is normal. The lungs are clear. IMPRESSION: 1. No acute pulmonary process. [facility], , 10/22/2024 1:40 PM
[2024-10-22 14:07] LABS: Color,Urine Light Yellow
[2024-10-22 14:08] LABS: Appearance,Urine Clear (Clear); Bilirubin,Urine Negative (Negative); Blood,Urine Negative (Negative); Glucose,Urine (UA) Negative (Negative); Ketones,Urine Negative (Negative); Leukocyte Esterase,Urine Negative (Negative); Nitrite,Urine Negative (Negative); PH, Urine 6.5 (5.0-8.0); Protein,Urine Negative (Negative); Specific Gravity,Urine 1.022 (1.001-1.035); Urobilinogen,Urine <2.0 mg/dL (<2.0)
[2024-10-22] MEDS: CYCLOBENZAPRINE 10MG STARTER 3 TAB BTL PO STA (14:15)
[2024-10-22 14:18] VITALS: BP 110/77; PULSE 81; RESP 16; TEMP 98.1
[2024-10-22 23:08] LABS: Rheumatoid Factor, Qnt <15 IU/mL (0-15)
== END 2024-10-22 14:24 | disposition home or self-care (01) ==
LOC: EC 11:40
DX: R53.1 Weakness (principal); Z88.0 Allergy status to penicillin
CPT/HCPCS: 36415; 93005; 84439; 84481; 80053; 82550; 83605; 83735; 84443; 85025; 85610; 85730; 86431; 81003; 86038; 71046; 70450; 99283; 96374; J2360

== ENCOUNTER → 2025-01-23 | Outpatient (CLI) | payer BC ==
--- NOTE | 2025-02-02 03:02 | EM ---
EVENT MONITOR The patient was monitored between the and the January. CLINICAL INFORMATION: Baseline rhythm is a sinus mechanism. The average rate 84 beats per minute, minimum 56, maximum 171 beats per minute. No significant arrhythmia was noted. Ventricular ectopic activity was noted in the form of single PVCs. Symptoms of shortness of breath, lightheadedness did not correlate with any dysrhythmia. MMODL / IJN: [id number] /
== END | disposition home or self-care (01) ==
LOC: RADECHMAIN 13:15
PROVIDERS: ATTEND Family Medicine
DX: I49.3 Ventricular premature depolarization (principal); R00.0 Tachycardia, unspecified
CPT/HCPCS: 93270